=== PATIENT | female | born 1960 | race Caucasian/White ===

== ENCOUNTER 2023-01-27 20:48 | Inpatient (IN) | payer MEDICARE, OTHER ==
[~2023-01-27] VITALS: Ht 162.6 cm; Wt 59.4 kg
[2023-01-27 21:05] VITALS: BP 131/81
[2023-01-27] MEDS ORDERED: clonazePAM 0.5 MG TABLET PO PRN (21:30)
[2023-01-27] MEDS ORDERED: MAGNESIUM HYDROXIDE 30 ML UDC PO PRN (21:30)
[2023-01-27] MEDS ORDERED: BLOOD SUGAR DIAGNOSTIC 1 EACH STRIP IN ONE (21:30)
[2023-01-27] MEDS ORDERED: ACETAMINOPHEN 325 MG TABLET PO PRN (21:30)
[2023-01-27] MEDS ORDERED: MAG HYDROX/AL HYDROX/SIMETH 30 ML UDC PO PRN (21:30)
--- NOTE | 2023-01-27 21:30 | NUR ---
RN NOTE PATIENT IS ALERT AND ORIENTED X4. ADMITTED ON A VOLUNTARY STATUS. VOLUNTARY ADMISSION FORM SIGNED BY PATIENT AND WITNESSED BY RN. 2139 - CALLED ОЛЕГ MERCHANT INFORMED HER TO ASSESS/EVALUATE PATIENT. SHE STATED SHE WILL COME TO SEE THE PATIENT. 2154 - ALLIE IN THE UNIT. PATIENT WAS PLACED ON HOLD FOR 5150 DANGER TO SELF AND GRAVELY DISABLED ON 01/27/23 @2336. Addendum: 01/28/23 at 0311 by OUMAR AJ RN PATIENT WAS PLACED ON A 5150 FOR DTS/GD. DR. JORDAN TREVINO.
[2023-01-27] MEDS ORDERED: LEVO75TA7 PO (22:24)
[2023-01-27] MEDS ORDERED: FLUO20CA36 PO (22:24)
[2023-01-27] MEDS ORDERED: MELA3TAB41 PO (22:24)
[2023-01-27] MEDS ORDERED: PRAZ2CAP2 PO (22:24)
[2023-01-27] MEDS ORDERED: GABA300C PO (22:24)
[2023-01-27] MEDS ORDERED: OLAN5TAB3 PO (22:24)
[2023-01-27] MEDS ORDERED: NITR50CA4 PO (22:25)
[2023-01-27] MEDS ORDERED: DICY10CA37 PO (22:25)
[2023-01-27] MEDS ORDERED: POTA10TA21 PO (22:25)
[2023-01-27] MEDS ORDERED: LORA-259 PO (22:25)
[2023-01-27] MEDS ORDERED: ESTR42.53 VG (22:29)
--- NOTE | 2023-01-27 22:36 | NUR ---
RN NOTE: ADMITTED A 62-Y/O, FEMALE, PT CAME FROM [facility]. ADMITTED ON A 5150 HOLD FOR DTS/GD. PER HOLD, PT. ADMITTED DUE TO SUICIDAL IDEATIONS AND PLAN TO GET A GUN. UPON FACE TO FACE EVALUATION, PATIENT IS ALERT AND ORIENTED X3, APPEARS TO BE DEPRESSED, ANXIOUS AND GUARDED. VERBALIZATION OF FEELINGS ENCOURAGED. SKIN ASSESSMENT DONE. ALL BELONGINGS WERE CHECKED FOR CONTRABAND. PATIENT'S RIGHTS WERE DISCUSSED AND BOOKLET WAS GIVEN. CONTACTED DR. ORTEGA AND HOSPITALIST [facility] AND INFORMED THEM OF THE ADMISSION. PATIENT REFUSED TO SIGN ADMITTING PAPERWORK. PATIENT STATED "I AM EXHAUSTED". BED IN LOW AND LOCKED POSITION. SAFETY PRECAUTIONS MAINTAINED. WILL CONTINUE TO MONITOR Q15 MINS FOR MOOD, SAFETY AND BEHAVIOR.
[2023-01-27] MEDS ORDERED: ONDA4TAB11 BC (22:39)
[2023-01-27] MEDS ORDERED: PANT40TA49 PO (22:39)
[2023-01-27] MEDS ORDERED: PARO10TA86 PO (22:39)
[2023-01-27] MEDS ORDERED: METH4TAB PO (22:39)
[2023-01-27] MEDS: TEMAZEPAM 7.5 MG CAPSULE PO PRN (23:23)
--- NOTE | 2023-01-28 06:47 | NUR ---
RN NOTES CALLED [phone] TWICE, LEFT A VOICE MESSAGE REGARDING THE ADMISSION OF THE PATIENT. WILL ENDORSE TO THE NEXT SHIFT.
[2023-01-28 07:28] LABS: POTASSIUM 3.6 mmol/L (3.5-5.1)
[2023-01-28 07:29] LABS: ALBUMIN 3.6 g/dL (3.4-5.0); BILIRUBIN,TOTAL 0.4 mg/dL (0.2-1.0); CREATININE 0.7 mg/dL (0.6-1.3); TOTAL PROTEIN, SERUM 6.6 g/dL (6.4-8.2)
[2023-01-28 08:00] VITALS: BP 120/72
[2023-01-28] MEDS: NITROFURANTOIN MACROCRYSTAL 50 MG CAPSULE PO SCH (09:00)
[2023-01-28] MEDS ORDERED: ESTROGENS,CONJUGATED TUBE VG SCH (09:00)
[2023-01-28] MEDS ORDERED: GABAPENTIN 300 MG CAPSULE PO SCH (09:00)
[2023-01-28] MEDS: PANTOPRAZOLE 40 MG TABLET.DR PO SCH (09:35)
[2023-01-28] MEDS: methylPREDNISolone (4MG) 4 MG TABLET PO SCH (09:35)
[2023-01-28] MEDS: LEVOTHYROXINE SODIUM 75 MCG TABLET PO SCH (09:36)
[2023-01-28] MEDS: GABAPENTIN 300 MG CAPSULE PO SCH ×3 (09:36→16:30)
--- NOTE | 2023-01-28 09:43 | NUR ---
macrodantin 50mg non admin per pharmacy medicine is not available will notify enternist
[2023-01-28] MEDS: OLANZAPINE 2.5 MG TABLET PO SCH ×2 (11:29→16:30)
[2023-01-28] MEDS: FLUOXETINE HCL 20 MG CAPSULE PO SCH (11:29)
--- NOTE | 2023-01-28 14:15 | NUR ---
MEE Initial Discharge Note: Patient currently resides at home located at [address] [place] [address]; ([phone]). Pt would want to return back home. MEE will contact pt's cousin Ana ([phone]) with pt's permission to discuss treatment/discharge plan. MEE will work with the MD, pt, and family to help coordinate appropriate discharge.
--- NOTE | 2023-01-28 14:16 | NUR ---
MEE Clinical Note: Pt placed on a 5150 hold for danger to herself and GD. Per hold, pt has been depressed and anxious. Pt has been anxious at home. Patient currently resides at home located at [address] [place] [address]; ([phone]). Pt would want to return back home. SW will contact pt's cousin Ana ([phone]) with pt's permission to discuss treatment/discharge plan.
[2023-01-28 16:00] VITALS: BP 116/71
[2023-01-28] MEDS: DICYCLOMINE HCL 10 MG CAPSULE PO SCH (17:08)
--- NOTE | 2023-01-28 18:03 | NUR ---
RN-NOTES PATIENT IS VISIBLE IN THE UNIT BUT STAYS IN THE ROOM MOST OF THE TIME. GUARDED A/O X3 CALM,NO ACUTE DISTRESS NOTED. COMPLIANT WITH MEDICATIONS.AMBULATORY STEADY GAIT. ALL NEEDS ATTENDED AND ANTICIPATED. WILL ENDORSE TO INCOMING NURSE FOR THE CONTINUITY OF CARE.
[2023-01-28 20:00] VITALS: BP 101/72
--- NOTE | 2023-01-28 20:32 | NUR ---
RN NOTES: RECEIVED PATIENT SITTING IN THE HALLWAY AND TALKING WITH ANOTHER PATIENT'S , A/OX3. NO S/SX OF ACUTE DISTRESS NOTED. PATIENT IS , EASILY AGITATED , COOPERTIVE, GUARDED REDIRECTABLE,NEEDS FREQUENTLY REDIRECTIONS ,ENCOURAGED TO VERBALIZED ANY FEELING OR CONCERN ,SAFETY PRECAUTIONS MAINTAINED. WILL CONTINUE TO MONITOR Q15MIN ROUNDS FOR SAFETY.
[2023-01-28] MEDS: PRAZOSIN HCL 1 MG CAPSULE PO SCH (21:18)
[2023-01-28] MEDS: TEMAZEPAM 7.5 MG CAPSULE PO PRN (22:57)
--- NOTE | 2023-01-28 22:58 | NUR ---
RN NOTES; INSOMNIA PT. C/O UNABLE TO SLEEP ,PRN RESTORIL 15 MG PO GIVEN PER PT. REQUEST, WILL CONTINUE TO MONITOR.
--- NOTE | 2023-01-29 00:10 | NUR ---
RN NOTES : PT. REFUSED AT 0000 BENTYL 10 MG PO , ENCOURAGED X3, BUT PT. STRONGLY REFUSED ,PER PT. STATES I AM SO TIRED LET ME SLEEP, DON'T WAKE ME UP ,
[2023-01-29] MEDS: DICYCLOMINE HCL 10 MG CAPSULE PO SCH ×4 (05:05→17:27)
[2023-01-29 08:00] VITALS: BP 133/77
[2023-01-29] MEDS: PANTOPRAZOLE 40 MG TABLET.DR PO SCH (08:27)
[2023-01-29] MEDS: FLUOXETINE HCL 20 MG CAPSULE PO SCH (08:27)
[2023-01-29] MEDS: OLANZAPINE 2.5 MG TABLET PO SCH ×2 (08:27→16:07)
[2023-01-29] MEDS: LEVOTHYROXINE SODIUM 75 MCG TABLET PO SCH (08:27)
[2023-01-29] MEDS: methylPREDNISolone (4MG) 4 MG TABLET PO SCH (08:27)
[2023-01-29] MEDS: GABAPENTIN 300 MG CAPSULE PO SCH ×3 (08:27→16:07)
--- NOTE | 2023-01-29 08:48 | NUR ---
MEE Family Contact: SW contacted pt's cousin Ana ([phone]) and left a detailed voicemail wanting to discuss treatment/discharge plan.
--- NOTE | 2023-01-29 08:54 | NUR ---
RN-NOTES RECEIVED T.O ORDER FROM DR. ORTEGA TO D/C FRANCY ORDER AND ORDERED ATIVAN 0.5MG P.O Q4HR PRN FOR ANXIETY.
[2023-01-29] MEDS: NITROFURANTOIN MACROCRYSTAL 50 MG CAPSULE PO SCH (09:00)
[2023-01-29] MEDS: LORAZEPAM 0.5 MG TABLET PO PRN (09:21)
--- NOTE | 2023-01-29 09:22 | NUR ---
RN-NOTES PATIENT REQUESTING ATIVAN FOR HER ANXIETY. ATIVAN 0.5MG P.O GIVEN PRN ORDER. WILL CONT. MONITORING FOR SAFETY AND BEHAVIOR.
[2023-01-29] MEDS: NITROFURANTOIN/MONOHYDRATE MACROCRYSTALS 100 MG CAPSULE PO SCH ×2 (10:26→21:03)
[2023-01-29 16:00] VITALS: BP 120/69
[2023-01-29] MEDS: ENSURE ENLIVE 237 ML LIQUID (VANILLA) PO SCH (17:12)
[2023-01-29 20:00] VITALS: BP 114/56
[2023-01-29] MEDS: PRAZOSIN HCL 1 MG CAPSULE PO SCH (21:04)
[2023-01-30] MEDS: DICYCLOMINE HCL 10 MG CAPSULE PO SCH ×5 (00:19→23:52)
[2023-01-30] MEDS: LORAZEPAM 0.5 MG TABLET PO PRN (01:35)
--- NOTE | 2023-01-30 01:38 | NUR ---
RN NOTES: ANXIETY PT. C/O FEELING ANXIOUS , PARANOID, RESTLESS , PRN ATIVAN 0.5 MG PO GIVEN , PER PT. REQUEST, WILL CONTINUE TO MONITOR.
[2023-01-30] MEDS: PANTOPRAZOLE 40 MG TABLET.DR PO SCH (07:33)
[2023-01-30] MEDS: LEVOTHYROXINE SODIUM 75 MCG TABLET PO SCH (07:33)
[2023-01-30 08:00] VITALS: BP 115/62
[2023-01-30] MEDS: NITROFURANTOIN/MONOHYDRATE MACROCRYSTALS 100 MG CAPSULE PO SCH ×2 (08:14→20:47)
[2023-01-30] MEDS: GABAPENTIN 300 MG CAPSULE PO SCH ×3 (08:15→17:38)
[2023-01-30] MEDS: FLUOXETINE HCL 20 MG CAPSULE PO SCH (08:15)
[2023-01-30] MEDS: OLANZAPINE 2.5 MG TABLET PO SCH ×2 (08:15→17:39)
[2023-01-30] MEDS: ENSURE ENLIVE 237 ML LIQUID (VANILLA) PO SCH ×3 (08:15→17:38)
[2023-01-30] MEDS: methylPREDNISolone (4MG) 4 MG TABLET PO SCH ×2 (08:38→08:47)
[2023-01-30 16:00] VITALS: BP 131/79
--- NOTE | 2023-01-30 20:18 | NUR ---
RN NOTES: RECEIVED PATIENT WALKING AROUND THE UNIT , A/OX3. NO S/SX OF ACUTE DISTRESS NOTED. PATIENT IS , EASILY AGITATED , COOPERTIVE, GUARDED REDIRECTABLE,NEEDS FREQUENTLY REDIRECTIONS ,ENCOURAGED TO VERBALIZED ANY FEELING OR CONCERN ,SAFETY PRECAUTIONS MAINTAINED. WILL CONTINUE TO MONITOR Q15MIN ROUNDS FOR SAFETY.
[2023-01-30 20:34] VITALS: BP 111/77
[2023-01-30] MEDS: PRAZOSIN HCL 1 MG CAPSULE PO SCH (22:12)
[2023-01-30] MEDS: TEMAZEPAM 7.5 MG CAPSULE PO PRN (23:00)
--- NOTE | 2023-01-30 23:01 | NUR ---
RN NOTES; INSOMNIA PT. C/O UNABLE TO SLEEP ,PRN RESTORIL 15 MG PO GIVEN PER PT. REQUEST, WILL CONTINUE TO MONITOR.
[2023-01-31] MEDS: DICYCLOMINE HCL 10 MG CAPSULE PO SCH ×3 (05:54→18:00)
[2023-01-31] MEDS: PANTOPRAZOLE 40 MG TABLET.DR PO SCH (07:00)
[2023-01-31] MEDS: LEVOTHYROXINE SODIUM 75 MCG TABLET PO SCH (07:51)
[2023-01-31 08:00] VITALS: BP 128/79
[2023-01-31] MEDS: ENSURE ENLIVE 237 ML LIQUID (VANILLA) PO SCH ×3 (08:32→17:03)
[2023-01-31] MEDS: FLUOXETINE HCL 20 MG CAPSULE PO SCH (08:33)
[2023-01-31] MEDS: NITROFURANTOIN/MONOHYDRATE MACROCRYSTALS 100 MG CAPSULE PO SCH ×2 (08:33→21:32)
[2023-01-31] MEDS: GABAPENTIN 300 MG CAPSULE PO SCH ×3 (08:33→17:03)
[2023-01-31] MEDS: OLANZAPINE 2.5 MG TABLET PO SCH ×2 (08:33→17:03)
[2023-01-31] MEDS: methylPREDNISolone (4MG) 4 MG TABLET PO SCH (08:34)
[2023-01-31] MEDS: LORAZEPAM 0.5 MG TABLET PO PRN (10:25)
--- NOTE | 2023-01-31 10:25 | NUR ---
NURSE NOTE: PT STATED THAT SHE IS ANXIOUS AND REQUESTED ATIVAN AT THIS TIME. ATIVAN PO ADMINISTERED ORDERED. PT BERTA WELL. WILL CONT TO MONITOR.
--- NOTE | 2023-01-31 11:25 | NUR ---
NURSE NOTE: PT CALM AT THIS TIME, STATED THAT SHE IS FEELING BETTER. ATIVAN EFFECTIVE AT THIS TIME. WILL CONT TO MONITOR.
[2023-01-31 16:00] VITALS: BP 130/73
[2023-01-31 20:55] VITALS: BP 128/70
[2023-01-31] MEDS: TEMAZEPAM 7.5 MG CAPSULE PO PRN (21:32)
--- NOTE | 2023-01-31 21:32 | NUR ---
EXPLORATION MANAGER NOTES: PATIENT AWAKE, RESTORIL 15MG GIVEN PER PATIENT REQUESTED. WILL CONTINUE TO MONITOR.
[2023-01-31] MEDS: PRAZOSIN HCL 1 MG CAPSULE PO SCH (21:33)
[2023-02-01] MEDS: DICYCLOMINE HCL 10 MG CAPSULE PO SCH ×4 (06:00→18:00)
[2023-02-01] MEDS: PANTOPRAZOLE 40 MG TABLET.DR PO SCH (06:00)
[2023-02-01] MEDS: LEVOTHYROXINE SODIUM 75 MCG TABLET PO SCH (06:00)
[2023-02-01 08:00] VITALS: BP 130/73
[2023-02-01] MEDS: ENSURE ENLIVE 237 ML LIQUID (VANILLA) PO SCH ×3 (08:38→16:38)
[2023-02-01] MEDS: NITROFURANTOIN/MONOHYDRATE MACROCRYSTALS 100 MG CAPSULE PO SCH ×2 (08:39→21:02)
[2023-02-01] MEDS: OLANZAPINE 2.5 MG TABLET PO SCH ×2 (08:39→16:38)
[2023-02-01] MEDS: FLUOXETINE HCL 20 MG CAPSULE PO SCH (08:39)
[2023-02-01] MEDS: GABAPENTIN 300 MG CAPSULE PO SCH ×3 (08:39→16:38)
[2023-02-01] MEDS: methylPREDNISolone (4MG) 4 MG TABLET PO SCH (09:00)
[2023-02-01] MEDS: LORAZEPAM 0.5 MG TABLET PO PRN (13:08)
--- NOTE | 2023-02-01 13:08 | NUR ---
NURSE NOTE: PT STATED THAT SHE IS ANXIOUS AT THIS TIME. REQUESTED ATIVAN AT THIS TIME. ATIVAN PO ADMINISTERED ORDERED. PT BERTA WELL. WILL CONT TO MONITOR.
--- NOTE | 2023-02-01 13:43 | NUR ---
MEE Family Contact: SW contacted pt's cousin Ana ([phone]) and left a detailed voicemail wanting to discuss treatment/discharge plan. Second attempt.
--- NOTE | 2023-02-01 14:08 | NUR ---
NURSE NOTE: PT CALM AT THIS TIME. ATIVAN EFFECTIVE AT THIS TIME. WILL CONT TO MONITOR.
[2023-02-01 16:00] VITALS: BP 124/70
[2023-02-01 20:31] VITALS: BP 126/74
[2023-02-01] MEDS: PRAZOSIN HCL 1 MG CAPSULE PO SCH (21:53)
[2023-02-01] MEDS: TEMAZEPAM 7.5 MG CAPSULE PO PRN (22:09)
--- NOTE | 2023-02-01 22:09 | NUR ---
NURSE NOTE: PT REQUESTED TEMAZEPAM TO HELP HER GO TO SLEEP. TEMAZEPAM ADMIN ORDERED. PT BERTA WELL WILL CONT TO MONITOR.
--- NOTE | 2023-02-01 23:09 | NUR ---
NURSE NOTES: TEMAZEPAM EFFECTIVE AT THIS TIME, PT SLEEPING. WILL CONT TO MONITOR
[2023-02-02] MEDS: DICYCLOMINE HCL 10 MG CAPSULE PO SCH ×5 (00:20→23:17)
[2023-02-02] MEDS: LEVOTHYROXINE SODIUM 75 MCG TABLET PO SCH (06:02)
[2023-02-02] MEDS: PANTOPRAZOLE 40 MG TABLET.DR PO SCH (06:02)
[2023-02-02] MEDS: LORAZEPAM 0.5 MG TABLET PO PRN ×2 (07:45→12:31)
[2023-02-02] MEDS: ENSURE ENLIVE 237 ML LIQUID (VANILLA) PO SCH ×3 (07:47→17:46)
[2023-02-02 08:00] VITALS: BP 141/75
[2023-02-02] MEDS: OLANZAPINE 2.5 MG TABLET PO SCH ×2 (08:47→17:53)
[2023-02-02] MEDS: FLUOXETINE HCL 20 MG CAPSULE PO SCH (08:47)
[2023-02-02] MEDS: GABAPENTIN 300 MG CAPSULE PO SCH ×3 (08:48→17:52)
[2023-02-02] MEDS: NITROFURANTOIN/MONOHYDRATE MACROCRYSTALS 100 MG CAPSULE PO SCH ×2 (08:48→21:01)
[2023-02-02] MEDS: methylPREDNISolone (4MG) 4 MG TABLET PO SCH (08:50)
--- NOTE | 2023-02-02 11:40 | NUR ---
Friend Contact: Per pt's request, she wanted this chief underwriter to contact her friend Thelma ([phone]). Her friend stated that she is working and can pick her up , 02/04 at 5PM.
[2023-02-02 16:00] VITALS: BP 111/72
[2023-02-02 20:16] VITALS: BP 119/64
[2023-02-02] MEDS: PRAZOSIN HCL 1 MG CAPSULE PO SCH (21:01)
[2023-02-02] MEDS: TEMAZEPAM 7.5 MG CAPSULE PO PRN (22:24)
[2023-02-03] MEDS: DICYCLOMINE HCL 10 MG CAPSULE PO SCH ×4 (06:09→23:57)
[2023-02-03] MEDS: LEVOTHYROXINE SODIUM 75 MCG TABLET PO SCH (06:09)
[2023-02-03] MEDS: PANTOPRAZOLE 40 MG TABLET.DR PO SCH (06:09)
[2023-02-03] MEDS: LORAZEPAM 0.5 MG TABLET PO PRN ×2 (07:51→12:23)
[2023-02-03 08:00] VITALS: BP 139/70
[2023-02-03] MEDS: ENSURE ENLIVE 237 ML LIQUID (VANILLA) PO SCH ×3 (08:51→17:25)
[2023-02-03] MEDS: NITROFURANTOIN/MONOHYDRATE MACROCRYSTALS 100 MG CAPSULE PO SCH (08:56)
[2023-02-03] MEDS: GABAPENTIN 300 MG CAPSULE PO SCH ×3 (08:56→17:25)
[2023-02-03] MEDS: FLUOXETINE HCL 20 MG CAPSULE PO SCH (08:57)
[2023-02-03] MEDS: methylPREDNISolone (4MG) 4 MG TABLET PO SCH (08:57)
[2023-02-03] MEDS: OLANZAPINE 2.5 MG TABLET PO SCH ×2 (08:57→17:25)
--- NOTE | 2023-02-03 09:05 | NUR ---
MEE Coordination of Care: Patient will follow up with Body Press Operator, Dr. Adi Montoya located at [address] [facility] [address], [place] [address]; on February 08 10AM who will monitor and provide patients psychotropic medications, scheduled by Savanah.
--- NOTE | 2023-02-03 12:08 | NUR ---
Court Hearing: Patient's court hearing for 1490 was today and it was upheld for GD.
--- NOTE | 2023-02-03 12:08 | NUR ---
Court Notification: Pt does not have a supportive contact.
[2023-02-03 16:00] VITALS: BP 118/71
[2023-02-03 20:18] VITALS: BP 139/68
[2023-02-03] MEDS: PRAZOSIN HCL 1 MG CAPSULE PO SCH (21:20)
[2023-02-03] MEDS: TEMAZEPAM 7.5 MG CAPSULE PO PRN (22:13)
--- NOTE | 2023-02-03 22:13 | NUR ---
RN Notes Administered temazepam per PT request.
[2023-02-04] MEDS: DICYCLOMINE HCL 10 MG CAPSULE PO SCH ×2 (06:01→12:23)
[2023-02-04 08:00] VITALS: BP 118/64
[2023-02-04] MEDS: LEVOTHYROXINE SODIUM 75 MCG TABLET PO SCH (08:03)
[2023-02-04] MEDS: GABAPENTIN 300 MG CAPSULE PO SCH ×3 (08:03→16:26)
[2023-02-04] MEDS: FLUOXETINE HCL 20 MG CAPSULE PO SCH (08:03)
[2023-02-04] MEDS: OLANZAPINE 2.5 MG TABLET PO SCH ×2 (08:03→16:26)
[2023-02-04] MEDS: PANTOPRAZOLE 40 MG TABLET.DR PO SCH (08:03)
--- NOTE | 2023-02-04 08:06 | NUR ---
SW Discharge Note: Patient [place] [address] [place] [address]; ([phone]). Patients friend Tara ([phone]) will quill picking machine operator pt at 5PM. Patient is alert and oriented x3. Patient happy to be going back home. Patient denies suicidal or homicidal ideation. Patient denies visual/auditory hallucinations. Patient will follow up with Coating Machine Feeder, Dr. Adi Montoya located at [address] [facility] [address], [place] [address]; on February 08 10AM who will monitor and provide patients psychotropic medications.
[2023-02-04] MEDS: methylPREDNISolone (4MG) 4 MG TABLET PO SCH (08:08)
[2023-02-04] MEDS: ENSURE ENLIVE 237 ML LIQUID (VANILLA) PO SCH ×3 (08:08→16:38)
[2023-02-04] MEDS: LORAZEPAM 0.5 MG TABLET PO PRN (09:09)
--- NOTE | 2023-02-04 09:10 | NUR ---
RN-NOTES PATIENT REQUESTING ATIVAN FOR ANXIETY. ATIVAN 0.5MG P.O GIVEN PRN ORDER. WILL CONT.MONITORING FOR SAFETY AND BEHAVIOR. Addendum: 02/04/23 at 0924 by JANICE ORELLANA RN SHAWNA THOMAS GAVE VERBAL ORDER TO GIVE ONE TIME ATIVAN PRIOR TO DISCHARGE.
--- NOTE | 2023-02-04 10:10 | NUR ---
RN-NOTED PATIENT IN THE DAY ROOM WATCHING TV,CALM,NO ACUTE DISTRESS NOTED.
[2023-02-04 16:00] VITALS: BP 114/60
--- NOTE | 2023-02-04 17:30 | NUR ---
RN-DISCHARGE NOTES PATIENT HAD A DISCHARGE ORDER FROM [facility] COVERING FOR DR. ORTEGA( PSYCHIATRIST) DR. WAY ( FIELD INSTRUCTOR) MEDICALLY CLEARED PATIENT FOR DISCHARGE. PATIENT A/OX3 AMBULATORY STEADY GAIT. PATIENT LEFT THE UNIT IN STABLE CONDITION VITAL SIGNS 114/60 ,R18,P 75,TEMP.98 AND O2SAT 99% RA. PATIENT DID NOT VERBALIZE SI/HI,DENIES VISUAL/AUDITORY HALLUCINATIONS AT THE TIME OF DISCHARGE. INSTRUCTED PATIENT FOLLOW UP WITH PCP,CALL 911 OR GO TO THE NEAREST EMERGENCY ROOM IN CASE OF EMERGENCY. PATIENT WAS CHECK PROCESSING CLERK BY FRIEND SKINNY ([phone]) VIA PRIVATE CAR. ALL DISCHARGE PAPERS INCLUDING RX AND BELONGINGS WAS GIVEN BACK TO THE PATIENT.PATIENT WAS ACCOMPANIED BY THE CHARGE NURSE TO THE LOBBY FOR SAFETY.
== END 2023-02-04 17:30 | disposition home or self-care (01) | DRG 881 ==
LOC: GPS 20:48
PROVIDERS: ADMIT Nurse Practitioner Psychiatric/Mental Health; ATTEND Nurse Practitioner Acute Care
DX: F32.9 Major depressive disorder, single episode, unspecified (principal); R45.851 Suicidal ideations; E03.9 Hypothyroidism, unspecified; F43.10 Post-traumatic stress disorder, unspecified; F41.9 Anxiety disorder, unspecified; R26.89 Other abnormalities of gait and mobility; M79.7 Fibromyalgia; M19.90 Unspecified osteoarthritis, unspecified site; K27.9 Peptic ulcer, site unspecified, unspecified as acute or chronic, without hemorrhage or perforation; K21.9 Gastro-esophageal reflux disease without esophagitis; G47.00 Insomnia, unspecified; L30.9 Dermatitis, unspecified
CPT/HCPCS: 36415; 80053-TC; 80061-TC; 82962-TC; 87081-TC; J7509